=== PATIENT | female | born 1960 | race Caucasian/White ===

== ENCOUNTER 2017-11-13 16:37 | Inpatient (IN) | payer OTHER ==
[~2017-11-13] VITALS: Ht 154.9 cm; Wt 63.5 kg
[2017-11-14] MEDS ORDERED: PERCOCET 5-3251 EACH PO (10:35)
[2017-11-14] MEDS ORDERED: NEURONTIN300 MG PO (10:35)
== END 2017-11-14 14:07 | disposition home or self-care (01) | DRG 988 ==
LOC: ER 16:37 → SURH 19:48
PROVIDERS: Surgery
PROC: 0DBQ8ZX Excision of Anus, Via Natural or Artificial Opening Endoscopic, Diagnostic (ICD-10-PCS; 2017-11-14)
PROC: 3E0T3BZ Introduction of Anesthetic Agent into Peripheral Nerves and Plexi, Percutaneous Approach (ICD-10-PCS; 2017-11-14)
PROC: 0DJD7ZZ Inspection of Lower Intestinal Tract, Via Natural or Artificial Opening (ICD-10-PCS; 2017-11-14)
PROC: 0UJH7ZZ Inspection of Vagina and Cul-de-sac, Via Natural or Artificial Opening (ICD-10-PCS; 2017-11-14)
PROC: 0UBG7ZX Excision of Vagina, Via Natural or Artificial Opening, Diagnostic (ICD-10-PCS; principal; 2017-11-14 10:45)
DX: C21.1 Malignant neoplasm of anal canal (principal); K62.5 Hemorrhage of anus and rectum; K62.89 Other specified diseases of anus and rectum

== ENCOUNTER 2018-05-31 05:40 | Day surgery (SDC) | payer OTHER ==
[~2018-05-31 05:40] MED LIST: MULTI-VITAMIN1 EACH PO; NEURONTIN300 MG PO; PERCOCET 5-3251 EACH PO
[2018-05-31] MEDS ORDERED: PERCOCET 5-3251 EACH PO (11:16)
[2018-05-31] MEDS ORDERED: NEURONTIN300 MG PO (11:16)
[2018-05-31] MEDS ORDERED: RECTICARE30 GM TOP (11:17)
== END 2018-05-31 14:40 | disposition home or self-care (01) ==
LOC: CIR.AMB 05:40
DX: K62.0 Anal polyp (principal)